=== PATIENT | male | born 1965 | race African-American/Black ===

== ENCOUNTER 2018-12-27 06:10 | Emergency (ER) | payer MEDICAID, OTHER ==
[~2018-12-27] VITALS: Ht 175.3 cm; Wt 91.0 kg
[~2018-12-27 06:10] MED LIST: ABIL5 PO; AMLO10TA4 PO
[2018-12-27] MEDS ORDERED: KETOROLAC 30MG/ML VIAL IM ONE (06:45)
[2018-12-27] MEDS ORDERED: AMLODIPINE 10MG TABLET PO ONE (11:15)
[2018-12-27 12:22] VITALS: BP 183/105
== END 2018-12-27 12:24 | disposition home or self-care (01) ==
LOC: ER 06:30
DX: M25.551 Pain in right hip (principal); I10 Essential (primary) hypertension; Z79.899 Other long term (current) drug therapy
CPT/HCPCS: 73502; 96372; 99283; J1885; Z7610

== ENCOUNTER 2019-11-25 04:06 | Inpatient (IN) | payer MEDICAID, OTHER ==
[~2019-11-25] VITALS: Ht 177.8 cm; Wt 73.7 kg
[2019-11-25] MEDS ORDERED: AMLODIPINE 10MG TABLET PO ONE (04:45)
[2019-11-25 05:25] LABS: CHLORIDE 107 mEq/L (98-107)
[2019-11-25] MEDS ORDERED: FUROSEMIDE 40MG TABLET PO ONE (06:00)
[2019-11-25] MEDS ORDERED: ASPIRIN 325MG EC TABLET PO ONE (06:00)
[2019-11-25 06:05] LABS: BASOPHILS % 1.9 % (0.0-2.0); EOSINOPHILS % 1.8 % (0.0-5.0); HEMATOCRIT. 40.2 % (42.0-52.0); HEMOGLOBIN. 13.3 g/dL (14.0-18.0); LYMPHOCYTES % 25.7 % (20.0-50.0); MEAN CORPUSCULAR HEMOGLOBIN 26.8 pg (28.0-32.0); MEAN CORPUSCULAR VOLUME 80.9 fL (80.0-94.0); MEAN PLATELET VOLUME 9.6 fl (7.4-10.4); NEUTROPHILS % 63.6 % (40.0-76.0); PLATELET 312 x1000/uL (130-400); RED BLOOD CELL COUNT 4.97 mill/uL (4.7-6.1); RED CELL DISTRIBUTION WIDTH 15.4 % (11.6-14.6)
[2019-11-25] MEDS ORDERED: CLONIDINE 0.1MG TABLET PO SCH (09:00)
[2019-11-25] MEDS ORDERED: ACETAMINOPHEN 325MG TABLET PO PRN (09:45)
[2019-11-25] MEDS ORDERED: ONDANSETRON HCL 4MG/2ML INJ IV PRN (09:45)
[2019-11-25] MEDS ORDERED: CLONIDINE 0.1MG TABLET PO PRN (09:45)
[2019-11-25] MEDS ORDERED: ENOXAPARIN 40MG/0.4ML SYR SUBCUT SCH (11:00)
[2019-11-25 13:18] LABS: *AMPHETAMINES SCREEN URINE NEGATIVE (NEGATIVE); *BARBITURATES SCREEN URINE NEGATIVE (NEGATIVE); *BENZODIAZEPINES SCREEN URINE NEGATIVE (NEGATIVE); *COCAINE SCREEN URINE NEGATIVE (NEGATIVE)
[2019-11-25 13:20] LABS: METHADONE URINE SCREEN NEGATIVE (NEGATIVE)
[2019-11-25 13:22] LABS: PHENCYCLIDINE URINE SCREEN NEGATIVE (NEGATIVE)
[2019-11-25 13:23] LABS: CANNABINOID URINE SCREEN PRESUMTIVE POSITIVE (NEGATIVE)
[2019-11-25] MEDS ORDERED: TRAMADOL 50MG TABLET PO PRN (14:00)
[2019-11-25] MEDS: HYDRALAZINE HCL 100MG TABLET PO SCH ×2 (14:32→21:36)
[2019-11-25 15:35] VITALS: BP 158/111
[2019-11-25 15:42] VITALS: BP 158/111
[2019-11-25] MEDS ORDERED: IPRATROPIUM/ALBUTEROL 0.5-3(2.5)MG/3ML NEB HHN PRN (16:45)
[2019-11-25] MEDS ORDERED: INFLUENZA VIRUS VACCINE(AFLURIA) 0.5ML SYR IM ONE (17:00)
[2019-11-25] MEDS: FUROSEMIDE 40MG/4ML VIAL IVP SCH (17:46)
[2019-11-25] MEDS: CLONIDINE 0.1MG TABLET PO SCH ×2 (17:47→21:37)
[2019-11-25] MEDS ORDERED: AZITHROMYCIN 500 MG in DEXT 5% WATER 250 ML IV SCH (18:00)
[2019-11-25] MEDS ORDERED: CEFTRIAXONE 1 G PREMIX 50 ML IV SCH (18:00)
[2019-11-25 20:00] VITALS: BP 146/100
[2019-11-25] MEDS: AMLODIPINE 5MG TABLET PO SCH (21:36)
[2019-11-26] VITALS: BP 140/76
[2019-11-26 04:00] VITALS: BP 144/80
[2019-11-26 06:09] LABS: BASOPHILS % 0.9 % (0.0-2.0); CHLORIDE 102 mEq/L (98-107); EOSINOPHILS % 0.8 % (0.0-5.0); HEMATOCRIT. 44.1 % (42.0-52.0); HEMOGLOBIN. 14.7 g/dL (14.0-18.0); LYMPHOCYTES % 16.2 % (20.0-50.0); MEAN CORPUSCULAR HEMOGLOBIN 27.1 pg (28.0-32.0); MEAN CORPUSCULAR VOLUME 81.3 fL (80.0-94.0); MEAN PLATELET VOLUME 9.1 fl (7.4-10.4); MONOCYTES % 6.9 % (2.0-8.0); NEUTROPHILS % 75.2 % (40.0-76.0); PLATELET 349 x1000/uL (130-400); RED BLOOD CELL COUNT 5.42 mill/uL (4.7-6.1); RED CELL DISTRIBUTION WIDTH 15.6 % (11.6-14.6)
[2019-11-26] MEDS: HYDRALAZINE HCL 100MG TABLET PO SCH (06:33)
[2019-11-26] MEDS: CLONIDINE 0.1MG TABLET PO SCH (06:34)
[2019-11-26 08:25] VITALS: BP 134/74
[2019-11-26] MEDS: AMLODIPINE 5MG TABLET PO SCH (08:41)
[2019-11-26] MEDS: FUROSEMIDE 40MG/4ML VIAL IVP SCH ×2 (08:41→09:00)
[2019-11-26] MEDS ORDERED: ASPIRIN 81MG TABLET PO SCH (09:00)
[2019-11-26 20:18] LABS: OPIATES URINE SCREEN NEGATIVE (NEGATIVE)
== END 2019-11-26 10:00 | disposition left against medical advice (07) | DRG 194 ==
LOC: ER 04:06 → 6WST 06:10 → ENRESERV 14:46
PROVIDERS: ADMIT Internal Medicine; ATTEND Internal Medicine
DX: I11.0 Hypertensive heart disease with heart failure (principal); N17.0 Acute kidney failure with tubular necrosis; I42.9 Cardiomyopathy, unspecified; I16.0 Hypertensive urgency; E44.1 Mild protein-calorie malnutrition; M54.6 Pain in thoracic spine; F12.90 Cannabis use, unspecified, uncomplicated; R79.89 Other specified abnormal findings of blood chemistry; F17.210 Nicotine dependence, cigarettes, uncomplicated; Z91.14 Patient's other noncompliance with medication regimen; Z68.23 Body mass index [BMI] 23.0-23.9, adult; Z79.899 Other long term (current) drug therapy; I50.21 Acute systolic (congestive) heart failure; J18.9 Pneumonia, unspecified organism
CPT/HCPCS: 36415; 71045; 80048; 80053; 80061; 80305; 83880; 84145; 84443; 84484; 85025; 90686; 93005; 93306; 96372; 99285; J0456; J0696; J1650; J1940; J7060

== ENCOUNTER 2020-05-14 08:07 | Inpatient (IN) | payer OTHER, MEDICAID ==
[~2020-05-14] VITALS: Ht 177.8 cm; Wt 76.7 kg
[2020-05-14] MEDS ORDERED: VANCOMYCIN 1 G PREMIX 200 ML IV SCH (09:15)
[2020-05-14] MEDS ORDERED: PIPERACILLIN/TAZ 3.375G PREMIX 50 ML IV ONE (09:15)
[2020-05-14] MEDS ORDERED: CLONIDINE 0.1MG TABLET PO ONE (09:15)
[2020-05-14 09:35] LABS: HEMATOCRIT. 42.9 % (42.0-52.0); HEMOGLOBIN. 14.1 g/dL (14.0-18.0); MEAN CORPUSCULAR HEMOGLOBIN 27.2 pg (28.0-32.0); MEAN CORPUSCULAR VOLUME 82.4 fL (80.0-94.0); MEAN PLATELET VOLUME 9.2 fl (7.4-10.4); PLATELET 303 x1000/uL (130-400); RED CELL DISTRIBUTION WIDTH 15.3 % (11.6-14.6)
[2020-05-14 09:42] LABS: CHLORIDE 107 mEq/L (98-107)
[2020-05-14 10:20] LABS: PLATELET ESTIMATE NORMAL
[2020-05-14] MEDS ORDERED: ASPIRIN 325MG EC TABLET PO ONE (10:30)
[2020-05-14] MEDS ORDERED: HYDRALAZINE 20MG/ML VIAL IV ONE (11:45)
[2020-05-14] MEDS ORDERED: POTASSIUM CHLORIDE 20MEQ TABLET SR PO NR (12:00)
[2020-05-14] MEDS ORDERED: ACETAMINOPHEN 325MG TABLET PO PRN (13:00)
[2020-05-14] MEDS ORDERED: ONDANSETRON HCL 4MG/2ML INJ IV PRN (13:00)
[2020-05-14 13:05] LABS: CLARITY URINE CLEAR (CLEAR); COLOR URINE YELLOW (YELLOW); KETONES URINE NEGATIVE (NEGATIVE); LEUKOCYTE ESTERASE URINE NEGATIVE (NEGATIVE); NITRITE URINE NEGATIVE (NEGATIVE); OCCULT BLOOD URINE TRACE (NEGATIVE); PROTEIN URINE 1+ (NEGATIVE); SPECIFIC GRAVITY URINE 1.024 (1.005-1.030); UROBILINOGEN URINE 0.2 E.U./dL (0.2-1.0)
[2020-05-14] MEDS: AMLODIPINE 10MG TABLET PO SCH (13:54)
[2020-05-14 16:38] VITALS: BP 169/118
[2020-05-14 16:40] VITALS: BP 169/118
[2020-05-14] MEDS ORDERED: ENOXAPARIN 40MG/0.4ML SYR SUBCUT SCH (18:00)
[2020-05-14] MEDS ORDERED: HYDRALAZINE HCL 100MG TABLET PO NR (18:00)
[2020-05-14 18:22] VITALS: BP 147/93
[2020-05-14 20:00] VITALS: BP 139/80
[2020-05-14] MEDS: KETOROLAC 30MG/ML VIAL IV PRN (20:32)
[2020-05-14] MEDS: HYDRALAZINE HCL 100MG TABLET PO SCH (20:36)
[2020-05-14 22:12] VITALS: BP 137/86
[2020-05-15] VITALS (9 sets, daily range): BP systolic 114–164; BP diastolic 69–105
[2020-05-15] MEDS ORDERED: VANCOMYCIN 1 G PREMIX 200 ML IV SCH (04:00)
[2020-05-15] MEDS: KETOROLAC 30MG/ML VIAL IV PRN ×3 (04:07→12:10)
[2020-05-15] MEDS: CLONIDINE 0.1MG TABLET PO PRN ×2 (04:08→11:39)
[2020-05-15] MEDS: AMLODIPINE 10MG TABLET PO SCH (08:46)
[2020-05-15] MEDS: HYDRALAZINE HCL 100MG TABLET PO SCH (08:46)
[2020-05-15] MEDS ORDERED: AMLO10TA4 PO (11:30)
[2020-05-15] MEDS ORDERED: HYDR100T26 MT (11:30)
[2020-05-15] MEDS ORDERED: AMOX-424 MT (11:30)
[2020-05-15] MEDS ORDERED: SULF1TAB48 MT (11:30)
== END 2020-05-15 13:39 | disposition home or self-care (01) | DRG 199 ==
LOC: ER 08:07 → EDBEDREQTM 10:26 → EDBEDREQ 10:26 → 3WST 11:53 → EDBEDREQTM 11:55 → EDBEDREQ 11:55 → ENRESERV 15:12
PROVIDERS: ADMIT Internal Medicine; ATTEND Internal Medicine
DX: I16.0 Hypertensive urgency (principal); L03.031 Cellulitis of right toe; N17.9 Acute kidney failure, unspecified; F12.90 Cannabis use, unspecified, uncomplicated; F17.210 Nicotine dependence, cigarettes, uncomplicated; I13.0 Hypertensive heart and chronic kidney disease with heart failure and stage 1 through stage 4 chronic kidney disease, or unspecified chronic kidney disease; I43 Cardiomyopathy in diseases classified elsewhere; I50.22 Chronic systolic (congestive) heart failure; N18.9 Chronic kidney disease, unspecified; Z91.14 Patient's other noncompliance with medication regimen; Z91.19 Patient's noncompliance with other medical treatment and regimen; Z71.6 Tobacco abuse counseling
CPT/HCPCS: 36415; 71045; 73630; 80053; 81003; 84484; 85025; 85651; 93005; 99291; J0360; J1650; J1885; J2543; J3370

== ENCOUNTER 2020-05-20 07:09 | Emergency (ER) | payer OTHER, MEDICAID ==
[~2020-05-20] VITALS: Ht 177.8 cm; Wt 78.0 kg
[~2020-05-20 07:09] MED LIST changes: +AMOX-424 MT; +HYDR100T26 MT; +SULF1TAB48 MT
[2020-05-20] MEDS ORDERED: IBUPROFEN 600MG TABLET PO ONE (07:45)
[2020-05-20] MEDS ORDERED: BACITRACIN 15GM TUBE TOP ONE (07:45)
[2020-05-20 09:20] VITALS: BP 137/90
== END 2020-05-20 09:23 | disposition home or self-care (01) ==
LOC: ER 07:09
DX: L97.519 Non-pressure chronic ulcer of other part of right foot with unspecified severity (principal); I10 Essential (primary) hypertension; F12.10 Cannabis abuse, uncomplicated; Z48.00 Encounter for change or removal of nonsurgical wound dressing; Z79.899 Other long term (current) drug therapy; Z98.890 Other specified postprocedural states
CPT/HCPCS: 99283

== ENCOUNTER 2020-08-21 09:55 | Emergency (ER) | payer MEDICAID, OTHER ==
[~2020-08-21] VITALS: Ht 177.8 cm; Wt 77.0 kg
[2020-08-21 10:00] VITALS: BP 169/123
== END 2020-08-21 13:26 | disposition left against medical advice (07) ==
LOC: ER 09:55
DX: Z53.21 Procedure and treatment not carried out due to patient leaving prior to being seen by health care provider (principal)
CPT/HCPCS: 93005

== ENCOUNTER 2021-02-03 13:12 | Emergency (ER) | payer MEDICAID, OTHER ==
[~2021-02-03] VITALS: Ht 177.8 cm; Wt 79.5 kg
[2021-02-03 13:15] VITALS: BP 168/94
[2021-02-03] MEDS ORDERED: lasix (13:15)
[2021-02-03] MEDS ORDERED: albuterol (13:15)
[2021-02-03] MEDS ORDERED: IPRA4AER INH (14:31)
[2021-02-03] MEDS ORDERED: HYDR-4135 MT (14:31)
== END 2021-02-03 15:21 | disposition home or self-care (01) ==
LOC: ER 13:32
DX: Z76.0 Encounter for issue of repeat prescription (principal); J45.909 Unspecified asthma, uncomplicated; I11.0 Hypertensive heart disease with heart failure; I50.9 Heart failure, unspecified; F12.10 Cannabis abuse, uncomplicated; Z79.899 Other long term (current) drug therapy; Z86.59 Personal history of other mental and behavioral disorders
CPT/HCPCS: 99283

== ENCOUNTER 2021-09-25 13:44 | Emergency (ER) | payer MEDICAID ==
[~2021-09-25] VITALS: Ht 177.8 cm; Wt 92.0 kg
[~2021-09-25 13:44] MED LIST changes: +HYDR-4135 MT; +IPRA4AER INH; +albuterol; +lasix
[2021-09-25 14:41] VITALS: BP 142/98
== END 2021-09-25 14:54 | disposition home or self-care (01) ==
LOC: ER 13:44
DX: Z59.00 Homelessness unspecified (principal); Z79.899 Other long term (current) drug therapy
CPT/HCPCS: 99281